=== PATIENT | male | born 1990 | race Caucasian/White ===

== ENCOUNTER → 2017-08-07 | Outpatient (CLI) | payer OTHER ==
--- NOTE | 2017-08-07 13:55 | DIAGNOSTIC IMAGING REPORT ---
FUSION CT SINUSES W/O HISTORY: J34.3 Hypertrophy of both inferior nasal turbinates TECHNIQUE: Multiaxial CT images of the sinuses were performed reformatted in the coronal plane without the use of intravenous contrast. Fusion CT protocol was also obtained. COMPARISON STUDY: None. FINDINGS: Minimal right nasal septal deviation. The bilateral ostiomeatal units are patent. Small bilateral Kaylin cells measuring up to 8 mm on the right. The orbital floors and lamina papyracea are intact. A left anterior clinoid is pneumatized. There is a 2 mm anterior nasal septal defect. The frontal sinuses, ethmoid air cells, sphenoid sinuses, maxillary sinuses, and mastoid air cells are clear. No fluid levels identified. The visualized brain parenchyma and orbits are unremarkable. IMPRESSION: The paranasal sinuses and mastoid air cells are clear. Electronically signed by: Marcelo Celis M.D. 08/07/2017 1:53 PM Dictated Date/Time: 08/07/2017 1:45 PM
== END | disposition home or self-care (01) ==
LOC: C.CTS 13:15
DX: J34.3 Hypertrophy of nasal turbinates (principal)